=== PATIENT | female | born 1995 | race Caucasian/White ===

== ENCOUNTER 2017-10-01 13:57 | Inpatient (IN) | payer BC ==
[2017-10-01 16:28] LABS: Bilirubin Small (Negative); Blood, Urine Small (Negative); Clarity CLOUDY (Clear); Glucose, Urine (Dipstick) Negative (Negative); Leukocyte Trace (Negative); Nitrite Negative (Negative); Protein, Urine (Dipstick) Trace mg/dL (Neg-Trace); Specific Gravity, Urine 1.031 (1.002-1.036); Urobilinogen 0.2 mg/dL (0.2-1.0)
[2017-10-01 16:30] LABS: Squamous Epithelial 21-50 HPF (0-3)
[2017-10-01] MEDS ORDERED: Ondansetron HCl/PF 4 MG/2 ML Vial ONE (16:30)
[2017-10-01 16:33] LABS: Pathc Cast-AUWi Flag 5.82 (0-2.49); Pregnancy Test - Urine (BHCG) Negative (Negative); Pregu Control Background? CLEAR/WHITE (CLR/WHITE); Pregu Control Bar Appear? YES (CONTROL BAR); Specific Gravity 1.031 (1.002-1.036)
[2017-10-01 16:44] LABS: Bacteria/HPF 3+ HPF (None Seen); Hyaline Casts/LPF 0-3 HYALINE CAST LPF (0-3 Hyaline); Manual Microscopic Reviewed? No Path Casts Seen; RBC/HPF 0-3 HPF (0-3); Renal Epithelial None Seen HPF (0-3); Transitional Epithelial NONE SEEN HPF (0-3)
[2017-10-01] MEDS ORDERED: cefTRIAXone\\ROCEPHIN 2 GM in Sodium Chloride 0.9% 100 ML IVPB SCH (17:30)
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
[2017-10-01] MEDS ORDERED: Ketorolac Tromethamine 30 MG/ML VIAL ONE (18:52)
[2017-10-01] MEDS ORDERED: Fentanyl 100 MCG/2 ML VIAL ONE (18:52)
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
[2017-10-01] MEDS ORDERED: Ondansetron HCl/PF 4 MG/2 ML Vial IVP PRN (20:29)
[2017-10-01] MEDS ORDERED: Ondansetron ODT 4 MG TAB PO PRN (20:29)
[2017-10-01] MEDS ORDERED: Dextrose 50% Abboject 50 ML SYRINGE SLOW IVP PRN (20:29)
[2017-10-01] MEDS ORDERED: Dextrose 5% in Water 1,000 ML IV PRN (20:29)
[2017-10-01] MEDS ORDERED: traMADol HCl 50 MG TAB PO PRN (20:29)
[2017-10-01] MEDS ORDERED: hydrALAZINE 20 MG/ML VIAL SLOW IVP PRN (20:29)
[2017-10-01] MEDS ORDERED: Lorazepam 1 MG TAB PO PRN (20:59)
[2017-10-01] MEDS ORDERED: Gabapentin 100 MG CAP PO SCH (21:00)
[2017-10-01 21:50] LABS: Anion Gap 12 mmol/L (10-20); BUN (Urea Nitrogen) 13 mg/dL (7.0-18.7); Calc. Creatinine Clearance 0 mL/min (70-130); Calcium 9.1 mg/dL (7.8-10.44); Carbon Dioxide 26 mmol/L (22-29); Chloride 106 mmol/L (98-107); Estimated GFR-MDRD Greater than 90; Glucose 84 mg/dL (70-105); Potassium 3.4 mmol/L (3.5-5.1); Sodium 141 mmol/L (136-145)
[2017-10-01] MEDS: Famotidine 20 MG TAB PO SCH (21:58)
[2017-10-01] MEDS: Gabapentin 300 MG CAP PO SCH (21:58)
[2017-10-01] MEDS: Sulfameth/Trimethoprim DS 800-160mg TAB PO SCH (21:58)
[2017-10-01] MEDS: Sodium Chloride 0.9% 1,000 ML IV SCH (21:58)
[2017-10-01] MEDS: Cyclobenzaprine 10 MG TAB PO PRN (21:58)
[2017-10-02] MEDS: traMADol HCl 50 MG TAB PO SCH ×4 (00:58→23:54)
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
[2017-10-02 05:28] LABS: #Lymphocytes 2.1 thou/uL (1.20-3.40); #Monocytes 0.6 thou/uL (0.11-0.59); #Neutrophils 5.2 thou/uL (1.40-6.50); %Basophils 0.2 % (0.0-1.0); %Eosinophils 0.2 % (0.0-10.0); %Lymphocytes 26.4 % (21.0-51.0); %Monocytes 7.7 % (0.0-10.0); %Neutrophils 65.5 % (42.0-75.0); Hemoglobin 12.1 g/dL (12.0-16.0); Mean Corpuscular HGB CONC 33.5 g/dL (32.0-36.0); Mean Corpuscular Hemoglobin 29.9 pg (27.0-31.0); Mean Corpuscular Volume 89.2 fl (81.0-99.0); Mean Platelet Volume 7.1 fL (7.4-10.4); Platelet Count 238 thou/uL (130-400); Red Blood Cell (RBC) Count 4.06 mill/uL (4.20-5.40)
[2017-10-02 05:38] LABS: Anion Gap 12 mmol/L (10-20); BUN (Urea Nitrogen) 12 mg/dL (7.0-18.7); Calc. Creatinine Clearance 0 mL/min (70-130); Calcium 8.9 mg/dL (7.8-10.44); Carbon Dioxide 22 mmol/L (22-29); Chloride 108 mmol/L (98-107); Estimated GFR-MDRD Greater than 90; Glucose 83 mg/dL (70-105); Potassium 3.2 mmol/L (3.5-5.1); Sodium 139 mmol/L (136-145)
[2017-10-02] MEDS: Sodium Chloride 0.9% 1,000 ML IV SCH ×2 (06:50→18:10)
[2017-10-02 07:57] VITALS: BMI 40.3
[2017-10-02] MEDS ORDERED: FLU VACC QS2017-18 36 mo. & older 0.5 ML SYRINGE IM ONE (08:15)
[2017-10-02] MEDS: Famotidine 20 MG TAB PO SCH ×2 (08:41→21:23)
[2017-10-02] MEDS: Sulfameth/Trimethoprim DS 800-160mg TAB PO SCH ×2 (08:41→21:23)
[2017-10-02] MEDS: Gabapentin 300 MG CAP PO SCH ×2 (08:41→21:23)
[2017-10-02] MEDS: Folic Acid 1 MG TAB PO SCH (08:41)
[2017-10-02] MEDS ORDERED: Bacitracin Zinc 1 Packet TOP SCH (09:15)
[2017-10-02] MEDS ORDERED: Dexamethasone 4 mg/ml Vial SLOW IVP SCH (09:30)
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
[2017-10-02] MEDS ORDERED: Fentanyl 100 MCG/2 ML VIAL ONE ×4 (11:12→15:53)
[2017-10-02] MEDS ORDERED: Sodium Chloride 0.9% 10 ML ONE (11:22)
[2017-10-02] MEDS ORDERED: Dexamethasone 4 mg/ml Vial ONE (11:25)
[2017-10-02] MEDS ORDERED: Midazolam HCl 2 mg/2 ml Vial ONE (11:38)
[2017-10-02] MEDS ORDERED: Morphine 10 MG/ML VIAL ONE (11:38)
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
--- NOTE | 2017-10-02 14:20 | OP ---
DATE OF PROCEDURE: 10/02/2017 SURGEON: Rich Morales M.D. HOUSE MOVING SUPERVISOR: Angel Núñez PROCEDURE: L1 laminectomy, T12-L2 posterolateral arthrodesis, pedicle screw instrumentation, deminer alized bone matrix, and local morselized autograft T12-L2. DESCRIPTION OF PROCEDURE: The patient was brought into the operating room, intubated. She was jeffrey d in the prone position on gel-filled chest rolls. Incision made exposing T12 through L2 and our lev el was confirmed by x-ray. We identified a fracture through the posterior elements of L1 as anticipa chan. We performed a complete L1 laminectomy, completely decompressing the neural elements here. Nex t, pedicle screws were placed at T12 and L2 bilaterally using lateral fluoroscopic guidance and the p ositioned was confirmed with rotational x-ray. A demario was secured between the screws, connected by nu ts which were final tightened. The wound was then extensively irrigated, immaculate hemostasis was s ecured. A combination of demineralized bone matrix and local morselized autograft was laid over the laminar and posterolateral surfaces for the purpose of arthrodesis. Vancomycin powder was applied an d the wound was closed in anatomic layers.
[2017-10-02] MEDS ORDERED: Promethazine HCl 25 MG/ML VIAL IM PRN ×2 (14:40→15:09)
[2017-10-02] MEDS ORDERED: diphenhydrAMINE 50 MG/ML VIAL IM PRN (14:40)
[2017-10-02] MEDS ORDERED: Naloxone HCl 0.4 mg/ml Vial IV PRN (14:40)
[2017-10-02] MEDS ORDERED: HYDROmorphone 10 mg/100 ml CADD IVPB PRN (14:40)
[2017-10-02] MEDS ORDERED: diphenhydrAMINE 50 MG/ML VIAL IVP PRN (14:40)
[2017-10-02] MEDS ORDERED: Acetaminophen 500 MG TAB PO PRN (14:41)
[2017-10-02] MEDS ORDERED: Acetaminophen 500 MG TAB PO SCH (14:45)
[2017-10-02] MEDS ORDERED: Communication Order-Pharmacy FS SCH (14:45)
[2017-10-02] MEDS ORDERED: Ondansetron HCl/PF 4 MG/2 ML Vial IVP PRN (15:09)
[2017-10-02] MEDS ORDERED: Promethazine HCl 25 MG/ML VIAL SLOW IVP PRN (15:09)
[2017-10-02] MEDS ORDERED: Glycopyrrolate 0.2 MG/ML 5 ML SYRINGE ONE (15:33)
[2017-10-02] MEDS ORDERED: Propofol 200 MG/20 ML VIAL ONE (15:33)
[2017-10-02] MEDS ORDERED: Ondansetron HCl/PF 4 MG/2 ML Vial ONE (15:33)
[2017-10-02] MEDS ORDERED: Metoclopramide HCl 10 MG/2 ML VIAL ONE (15:33)
[2017-10-02] MEDS ORDERED: Lidocaine 1% PF 5 ML VIAL ONE (15:33)
[2017-10-02] MEDS ORDERED: diphenhydrAMINE 50 MG/ML VIAL ONE (15:33)
[2017-10-02] MEDS ORDERED: Dexamethasone 20 MG/5 ML VIAL ONE (15:33)
[2017-10-02] MEDS: Ketorolac Tromethamine 30 MG/ML VIAL IVP SCH ×2 (18:07→23:56)
[2017-10-02] MEDS: Bacitracin Zinc 1 Packet TOP SCH (21:24)
[2017-10-02] MEDS: CEFAZOLIN/Water 2 GM/20 ML SYRINGE SLOW IVP SCH (21:24)
[2017-10-02] MEDS ORDERED: CEFAZOLIN 1 GM VIAL SLOW IVP SCH (22:00)
[2017-10-02] MEDS ORDERED: CEFAZOLIN 1 GM, Syringe 2.5 ML in Sterile Water 7.5 ML SLOW IVP SCH (22:00)
[2017-10-02] MEDS: Acetaminophen 500 MG TAB PO SCH (23:55)
[2017-10-03] MEDS: traMADol HCl 50 MG TAB PO SCH ×5 (00:28→23:56)
--- NOTE | 2017-10-03 06:01 | PRG ---
DATE OF SERVICE: 10/02/2017 This is a 22-year-old female status post L1 laminectomy, T12-L2 posterolateral arthrodesis. Patient has no personal complaints at this time, says her pain has been managed with current pain reg imen. OBJECTIVE: VITAL SIGNS: Has been overall stable and reviewed. ASSESSMENT AND PLAN: Continue care as noted in daily progress note. PT, OT. Continue to monitor.
[2017-10-03] MEDS: Acetaminophen 500 MG TAB PO SCH ×3 (06:08→18:23)
[2017-10-03] MEDS: Ketorolac Tromethamine 30 MG/ML VIAL IVP SCH ×2 (06:08→11:34)
[2017-10-03] MEDS: CEFAZOLIN/Water 2 GM/20 ML SYRINGE SLOW IVP SCH (06:10)
[2017-10-03] MEDS: Gabapentin 300 MG CAP PO SCH ×3 (09:18→19:59)
[2017-10-03] MEDS: Famotidine 20 MG TAB PO SCH (09:18)
[2017-10-03] MEDS: Bacitracin Zinc 1 Packet TOP SCH ×2 (09:18→19:59)
[2017-10-03] MEDS: Folic Acid 1 MG TAB PO SCH (09:19)
[2017-10-03] MEDS: Sulfameth/Trimethoprim DS 800-160mg TAB PO SCH ×2 (09:19→19:59)
[2017-10-03] MEDS: Venlafaxine HCl 25 MG TAB PO SCH (09:21)
[2017-10-03] MEDS: Cyclobenzaprine 10 MG TAB PO PRN ×3 (09:24→17:32)
[2017-10-03] MEDS ORDERED: HYDROcodone/Acetaminophen 10/325 mg Tablet PO SCH (09:45)
--- NOTE | 2017-10-03 12:05 | PRG ---
DATE OF SERVICE: 10/03/2017 SUBJECTIVE: Ms. Pandya is awake and alert today. She is postoperative day #1 today status post L1 l aminectomy. She reports 7/10 back pain. She moves all extremities. She tolerates diet. Denied any nausea or vomiting. OBJECTIVE: VITAL SIGNS: This morning includes blood pressure 116/75, pulse 70, respiratory rate is 14, temperat ure 98.4 degrees Fahrenheit, oxygen saturation is 95% on room air. HEENT: Reveals normocephalic and atraumatic. HEART: Reveals regular rate and rhythm, no murmurs or gallops auscultated. CHEST: Clear to auscultation bilaterally. Breathing is regular and unlabored. She is achieving 150 0 mL using incentive spirometer. ABDOMEN: Soft, nontender, nondistended. EXTREMITIES: Reveals 2+ radial and pedal pulses bilaterally. No ankle edema is present. MUSCULOSKELETAL: Reveals 4/5 muscle strength in bilateral lower extremities, this is improved from p reoperatively. Upper extremity is 5/5. NEUROLOGIC: She has no sensory deficits identified at this time. IMPRESSION: Postoperative day #1, status post L1 laminectomy. PLAN: Continue with physical and occupational therapy. Initiate a chemical VTE prophylaxis as it ad juncts to the nonpharmacological VTE prophylaxis. We will ask PMR to evaluate the patient in consideration for inpatient rehabilitation. We will optim ize pain management. Above findings and plan discussed with the patient who indicates understanding of the information spike rucker. I answered her questions.
[2017-10-03] MEDS ORDERED: traMADol HCl 50 MG TAB PO SCH ×2 (14:00→19:30)
[2017-10-03] MEDS: Ibuprofen 800 MG TAB PO SCH ×2 (14:08→23:56)
[2017-10-03] MEDS: HYDROcodone/Acetaminophen 10/325 mg Tablet PO PRN (17:32)
[2017-10-03] MEDS: Cephalexin 250 MG CAP PO SCH ×2 (18:23→23:56)
--- NOTE | 2017-10-03 21:52 | PRG ---
DATE OF SERVICE: 10/03/2017 SUBJECTIVE: This is a 22-year-old female status post L1 laminectomy and T12-L2 posterolateral arthro desis fusion. The patient has no new complaints at this time. Pain is controlled. She is postopera tive day #1. OBJECTIVE: VITAL SIGNS: Have been overall stable and reviewed. Physical exam is unremarkable than stated in th e daily progress note. ASSESSMENT AND PLAN: Continue care as noted in daily progress note. PT, OT. Continue to monitor. Discharge disposition is pending.
[2017-10-04] MEDS: Acetaminophen 500 MG TAB PO SCH ×5 (00:01→23:05)
[2017-10-04] MEDS: HYDROcodone/Acetaminophen 10/325 mg Tablet PO PRN ×4 (01:03→20:22)
[2017-10-04] MEDS: traMADol HCl 50 MG TAB PO SCH ×5 (06:15→23:00)
[2017-10-04] MEDS: Cephalexin 250 MG CAP PO SCH ×4 (06:15→23:00)
[2017-10-04] MEDS: Ibuprofen 800 MG TAB PO SCH ×3 (06:15→22:58)
[2017-10-04] MEDS: Gabapentin 300 MG CAP PO SCH ×3 (08:55→20:23)
[2017-10-04] MEDS: Venlafaxine HCl 25 MG TAB PO SCH (08:55)
[2017-10-04] MEDS: Bacitracin Zinc 1 Packet TOP SCH ×2 (08:56→20:23)
[2017-10-04] MEDS: Sulfameth/Trimethoprim DS 800-160mg TAB PO SCH ×2 (08:56→20:23)
[2017-10-04] MEDS: Folic Acid 1 MG TAB PO SCH (08:56)
[2017-10-04] MEDS: diphenhydrAMINE 25 MG CAP PO PRN ×2 (10:08→20:22)
--- NOTE | 2017-10-04 18:03 | PRG ---
DATE OF SERVICE: 10/04/2017 ATTENDING PHYSICIAN: Kvng Villagomez DO SUBJECTIVE: The patient is postoperative day number 2 status post L1 laminectomy. She reports pain is much improved. She is moving all extremities and ambulating around the room. She is tolerating a regular diet. She is seen this morning up and dressed with clothes on, ready to work with physical therapy. OBJECTIVE: VITAL SIGNS: Temperature 97.6, pulse 70, respirations 12, O2 sat 96% on room air, blood pressure 137 /92. HEENT: Normocephalic, atraumatic. CARDIOVASCULAR: Regular rate and rhythm. Heart sounds normal. PULMONARY: Bilateral breath sounds clear. Respirations even and unlabored. 1500 mL on incentive sp irometer. ABDOMEN: Soft, nontender, nondistended. EXTREMITIES: Neurovascularly intact. Moves all extremities. Cap refill brisk. NEUROLOGIC: GCS 15. A and O x3. ASSESSMENT: 1. Status post L1 laminectomy. 2. Pain improving with change in pain regimen yesterday. PLAN: 1. Continue mobilizing with physical and occupational therapy. 2. Case management consult and rehab screening. 3. Continue antibiotics per Neurosurgery service. 4. Continue pain medication as currently ordered. 5. SCDs for DVT prophylaxis with ambulation. Neurosurgery not recommending chemical DVT prophylaxis . The patient was seen and examined with Dr. Villagomez who agrees with the assessment and plan. This is Honey Alexander, nurse practitioner, dictating a daily progress note for Dr. Kvng Villagomez.
[2017-10-04] MEDS: Cyclobenzaprine 10 MG TAB PO PRN (20:22)
[2017-10-04] MEDS: Senokot S 8.6-50 MG TAB PO SCH (20:23)
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
[2017-10-05] MEDS: HYDROcodone/Acetaminophen 10/325 mg Tablet PO PRN ×2 (03:14→08:57)
[2017-10-05] MEDS: Cephalexin 250 MG CAP PO SCH ×2 (05:43→12:02)
[2017-10-05] MEDS: traMADol HCl 50 MG TAB PO SCH ×2 (05:43→12:02)
[2017-10-05] MEDS: Acetaminophen 500 MG TAB PO SCH ×2 (05:44→11:26)
[2017-10-05] MEDS: Ibuprofen 800 MG TAB PO SCH (05:44)
[2017-10-05] MEDS: Bacitracin Zinc 1 Packet TOP SCH (08:56)
[2017-10-05] MEDS: diphenhydrAMINE 25 MG CAP PO PRN (08:56)
[2017-10-05] MEDS: Gabapentin 300 MG CAP PO SCH (08:56)
[2017-10-05] MEDS: Sulfameth/Trimethoprim DS 800-160mg TAB PO SCH (08:57)
[2017-10-05] MEDS: Senokot S 8.6-50 MG TAB PO SCH (08:57)
[2017-10-05] MEDS: Folic Acid 1 MG TAB PO SCH (08:57)
[2017-10-05] MEDS ORDERED: Polyethylene Glycol 3350 17 GM Packet PO SCH (09:00)
[2017-10-05] MEDS: Venlafaxine HCl 25 MG TAB PO SCH (09:01)
--- NOTE | 2017-10-05 10:51 | PRG ---
DATE OF SERVICE: 10/05/2017 Ms. Pandya is hospital day #4 following a thoracolumbar stabilization for an L1 burst fracture. She states she is improving daily. She has some paresthesias into her anterior thighs and I let her know this is typical, as the neural elements recover from a traumatic injury such as her burst fracture. Her strength is good throughout her multiple bilateral lower extremity myotomes and she is ambulatin g and mobilizing. Disposition will be determined by how she continues to do over the course of the n ext day or two.
[2017-10-05 11:38] VITALS: BP 121/79; TEMP 97.8
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
== END 2017-10-05 14:07 | disposition home or self-care (01) | DRG 460 ==
LOC: ERS 13:57 → SURG B 18:18
PROVIDERS: ADMIT Specialist; ATTEND Specialist
PROC: 0RGA071 Fusion of Thoracolumbar Vertebral Joint with Autologous Tissue Substitute, Posterior Approach, Posterior Column, Open Approach (ICD-10-PCS; principal; 2017-10-02)
PROC: 2W35X3Z Immobilization of Back using Brace (ICD-10-PCS; 2017-10-04)
DX: S32.011A Stable burst fracture of first lumbar vertebra, initial encounter for closed fracture (principal); S22.080A Wedge compression fracture of T11-T12 vertebra, initial encounter for closed fracture; Z68.41 Body mass index [BMI] 40.0-44.9, adult; V49.9XXA Car occupant (driver) (passenger) injured in unspecified traffic accident, initial encounter; F41.9 Anxiety disorder, unspecified; F32.9 Major depressive disorder, single episode, unspecified; E66.9 Obesity, unspecified
CPT/HCPCS: 36415; 72125; 72128; 72131; 76001; 80048; 81003; 81015; 81025; 85025; 87086; 96365; 96375; A4216; C1713; C1768; G8978-GP-CL; G8979-GP-CJ; G8987-GO-CL; G8988-GO-CJ; J0131; J0690; J0696; J1100; J1200; J1885; J2001; J2250; J2270; J2405; J2704; J2765; J3010; J3370; J3490; J7050

== ENCOUNTER 2017-10-16 09:29 | Outpatient (CLI) | payer BC ==
--- NOTE | 2017-10-16 11:13 | RAD ---
LUMBAR SPINE TWO VIEWS: History: Status post lumbar surgery. Comparison: None. FINDINGS: There are midline skin nick. There are bilateral transpedicular screws at what appears to be T12 a nd L2. Moderate compression deformity at L1 with retropulsion. IMPRESSION: Fusion changes at the distal thoracic and upper lumbar spine. POS: [facility]
== END 2017-10-16 09:30 | disposition home or self-care (01) ==
LOC: TBSIIMAG 09:29
PROVIDERS: ATTEND Physician Assistant
DX: M54.5 Low back pain (principal); Z98.1 Arthrodesis status
CPT/HCPCS: 72100

== ENCOUNTER 2017-11-28 15:00 | Outpatient (CLI) | payer BC ==
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
== END 2017-11-28 15:01 | disposition home or self-care (01) ==
LOC: TBSIIMAG 15:00
PROVIDERS: ATTEND Neurological Surgery
DX: M48.56XA Collapsed vertebra, not elsewhere classified, lumbar region, initial encounter for fracture (principal); Z98.890 Other specified postprocedural states
CPT/HCPCS: 72100

== ENCOUNTER 2018-01-01 15:09 | Outpatient (CLI) | payer BC ==
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
== END 2018-01-01 15:10 | disposition home or self-care (01) ==
LOC: TBSIIMAG 15:09
PROVIDERS: ATTEND Neurological Surgery
DX: M54.9 Dorsalgia, unspecified (principal); Z96.89 Presence of other specified functional implants
CPT/HCPCS: 72100

== ENCOUNTER 2018-04-03 13:30 | Outpatient (CLI) | payer BC ==
--- NOTE | 2018-04-03 13:54 | RAD ---
LUMBAR SPINE SERIES 2 VIEWS: Date: 04/03/18 HISTORY: Postop. COMPARISON: 01/01/18 study. FINDINGS: Postoperative changes are again noted of the spine. This includes bilateral pedicle screws at T12 and L1 with stable compression changes of the T12 vertebral body. Pedicle screws appear unchanged in pos ition. The right T12 pedicle screw appears to extend into the disc space. IMPRESSION: Stable exam. POS: [facility]
== END 2018-04-03 13:31 | disposition home or self-care (01) ==
LOC: TBSIIMAG 13:30
PROVIDERS: ATTEND Neurological Surgery
DX: M54.9 Dorsalgia, unspecified (principal)
CPT/HCPCS: 72100

== ENCOUNTER 2018-06-04 19:54 | Emergency (ER) | payer BC ==
[2018-06-04] MEDS ORDERED: HYDROcodone/Acetaminophen 5/325 mg Tablet ONE (21:04)
[2018-06-04 21:08] LABS: #Eosinphils 0.1 thou/uL (0.0-0.7); #Lymphocytes 3.6 thou/uL (1.20-3.40); #Monocytes 0.6 thou/uL (0.11-0.59); #Neutrophils 8.1 thou/uL (1.40-6.50); %Basophils 0.1 % (0.0-1.0); %Lymphocytes 29.3 % (21.0-51.0); %Monocytes 5.1 % (0.0-10.0); %Neutrophils 64.6 % (42.0-75.0); Hemoglobin 13.9 g/dL (12.0-16.0); Mean Corpuscular HGB CONC 33.1 g/dL (32.0-36.0); Mean Corpuscular Hemoglobin 28.9 pg (27.0-31.0); Mean Corpuscular Volume 87.3 fL (78.0-98.0); Mean Platelet Volume 6.7 fL (7.4-10.4); Platelet Count 369 thou/uL (130-400); RBC Distribution Width 11.6 % (11.5-14.5); White Blood Cell (WBC) Count 12.5 thou/uL (4.8-10.8)
[2018-06-04 21:15] LABS: BHCG - Serum Negative (NEGATIVE); Pregs Control Background? CLEAR/WHITE (CLR/WHITE); Pregs Control Bar Appear? YES (CONTROL BAR)
[2018-06-04] MEDS ORDERED: Methocarbamol 500 MG TAB PO SCH (21:15)
[2018-06-04 21:32] LABS: ALT (SGPT) 19 U/L (8-55); AST (SGOT) 15 U/L (5-34); Albumin 4.6 g/dL (3.5-5.0); Alkaline Phosphatase 53 U/L (40-150); Anion Gap 15 mmol/L (10-20); BUN (Urea Nitrogen) 9 mg/dL (7.0-18.7); Bilirubin, Total 0.2 mg/dL (0.2-1.2); Calc. Creatinine Clearance 0 mL/min (70-130); Calcium 9.9 mg/dL (7.8-10.44); Carbon Dioxide 21 mmol/L (22-29); Chloride 106 mmol/L (98-107); Estimated GFR-MDRD Greater than 90; Globulin 3.3 g/dL (2.4-3.5); Glucose 93 mg/dL (70-105); Potassium 3.7 mmol/L (3.5-5.1); Protein, Total 7.9 g/dL (6.0-8.3); Sodium 138 mmol/L (136-145)
[2018-06-04] MEDS ORDERED: Lorazepam 2 MG/ML VIAL ONE (21:34)
[2018-06-04] MEDS ORDERED: Lorazepam 1 MG TAB ONE (21:49)
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
--- NOTE | 2018-06-04 22:25 | CT ---
CT PELVIS WITH CORONAL AND SAGITTAL REFORMATIONS: 06/04/18 HISTORY: Fall. Right sided leg pain. FINDINGS/IMPRESSION: The bony pelvis is intact. The proximal femurs are also intact. No fracture or dislocation is identif ied. POS: [facility]
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
[2018-06-04] MEDS ORDERED: Ketorolac Tromethamine 60 MG/2 ML VIAL ONE (23:26)
== END 2018-06-05 00:36 | disposition home or self-care (01) ==
LOC: ERS 19:54
DX: M54.5 Low back pain (principal); F32.9 Major depressive disorder, single episode, unspecified; F41.9 Anxiety disorder, unspecified; Z79.899 Other long term (current) drug therapy; W18.2XXA Fall in (into) shower or empty bathtub, initial encounter
CPT/HCPCS: 36415; 70450; 72125; 72158; 72192; 80053; 84703; 85025; 96372; J1885; J2060

== ENCOUNTER 2018-09-23 12:05 | Emergency (ER) | payer OTHER ==
[2018-09-23] MEDS ORDERED: Ketorolac Tromethamine 30 MG/ML VIAL ONE (12:26)
[2018-09-23] MEDS ORDERED: Cyclobenzaprine 10 MG TAB ONE (12:26)
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
== END 2018-09-23 13:35 | disposition home or self-care (01) ==
LOC: ERS 12:05
DX: S16.1XXA Strain of muscle, fascia and tendon at neck level, initial encounter (principal); V43.62XA Car passenger injured in collision with other type car in traffic accident, initial encounter
CPT/HCPCS: 72125; 96372; J1885

== ENCOUNTER 2018-10-13 11:41 | Emergency (ER) | payer OTHER ==
[~2018-10-13 11:41] MED LIST: ISOVUE-370 76%-LOCM 1 ML ONE
[2018-10-13 12:36] LABS: #Eosinphils 0.1 thou/uL (0.0-0.7); #Lymphocytes 2.4 thou/uL (1.20-3.40); #Monocytes 0.5 thou/uL (0.11-0.59); %Basophils 0.2 % (0.0-1.0); %Eosinophils 0.9 % (0.0-10.0); %Lymphocytes 21.4 % (21.0-51.0); %Monocytes 4.6 % (0.0-10.0); %Neutrophils 72.9 % (42.0-75.0); Hemoglobin 15.1 g/dL (12.0-16.0); Mean Corpuscular HGB CONC 33.6 g/dL (32.0-36.0); Mean Corpuscular Hemoglobin 29.2 pg (27.0-31.0); Mean Corpuscular Volume 86.8 fL (78.0-98.0); Mean Platelet Volume 6.9 fL (7.4-10.4); Platelet Count 386 thou/uL (130-400); RBC Distribution Width 11.4 % (11.5-14.5); Red Blood Cell (RBC) Count 5.18 mill/uL (4.20-5.40)
[2018-10-13 12:56] LABS: ALT (SGPT) 44 U/L (8-55); AST (SGOT) 32 U/L (5-34); Albumin 4.7 g/dL (3.5-5.0); Alkaline Phosphatase 57 U/L (40-150); Anion Gap 19 mmol/L (10-20); BUN (Urea Nitrogen) 9 mg/dL (7.0-18.7); Bilirubin, Total 0.4 mg/dL (0.2-1.2); Calc. Creatinine Clearance 0 mL/min (70-130); Calcium 10.3 mg/dL (7.8-10.44); Carbon Dioxide 18 mmol/L (22-29); Chloride 106 mmol/L (98-107); Estimated GFR-MDRD 90; Globulin 3.4 g/dL (2.4-3.5); Glucose 112 mg/dL (70-105); Magnesium 1.8 mg/dL (1.6-2.6); Potassium 3.8 mmol/L (3.5-5.1); Protein, Total 8.1 g/dL (6.0-8.3); Sodium 139 mmol/L (136-145)
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
[2018-10-13] MEDS ORDERED: Acetaminophen 500 MG TAB ONE (13:23)
[2018-10-13] MEDS ORDERED: Ketorolac Tromethamine 30 MG/ML VIAL ONE (13:23)
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
[2018-10-13 14:09] LABS: Bilirubin Moderate (Negative); Blood, Urine Negative (Negative); Glucose, Urine (Dipstick) Negative (Negative); Leukocyte Trace (Negative); Nitrite Negative (Negative); Protein, Urine (Dipstick) Negative (Neg-Trace); Urobilinogen 0.2 mg/dL (0.2-1.0)
[2018-10-13 14:17] LABS: Specific Gravity, Urine 1.023 (1.002-1.036)
[2018-10-13 14:18] LABS: Clarity Hazy (Clear)
[2018-10-13 14:20] LABS: Pregnancy Test - Urine (BHCG) Negative (Negative); Pregu Control Background? CLEAR/WHITE (CLR/WHITE); Pregu Control Bar Appear? YES (CONTROL BAR); Specific Gravity 1.025 (1.002-1.036)
[2018-10-13 14:21] LABS: Amphetamine Not Detected (NotDetected); Barbiturates Screen Not Detected (NotDetected); Benzodiazepine Screen Not Detected (NotDetected); Cocaine Metabolite Screen Not Detected (NotDetected); Medtox Control Line Valid? VALID (VALID); Medtox Reader # READER 1; Methadone Not Detected (NotDetected); Methamphetamine Not Detected (NotDetected); Opiate Screen Detected (NotDetected); Oxycodone Screen Not Detected (NotDetected); Phencyclidine (PCP) Not Detected (NotDetected); THC/Cannabinoid Screen Not Detected (NotDetected); Tricyclic Screen Not Detected (NotDetected)
[2018-10-13 14:27] LABS: Bacteria/HPF 2+ HPF (None Seen); RBC/HPF 0-3 HPF (0-3); Renal Epithelial None Seen HPF (0-3); Transitional Epithelial 0-3 HPF (0-3)
[2018-10-13 14:28] LABS: Hyaline Casts/LPF 0-3 HYALINE CAST LPF (0-3 Hyaline)
[2018-10-13] MEDS ORDERED: Lorazepam 2 MG/ML VIAL ONE (14:45)
[2018-10-13] MEDS ORDERED: Dexamethasone 4 mg/ml Vial ONE (15:07)
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
--- NOTE | 2018-10-18 14:06 | EKG ---
Test Reason : Blood Pressure : / mmHG Vent. Rate : 114 BPM Atrial Rate : 114 BPM P-R Int : 164 ms QRS Dur : 072 ms QT Int : 290 ms P-R-T Axes : 031 074 012 degrees QTc Int : 399 ms Sinus tachycardia Right atrial enlargement Nonspecific T wave abnormality Abnormal ECG Confirmed by MAHAMED Ferris, DOLLY ([id number]), image editor WARD HIGGINS ([id number]) on 10/18/2018 2:04:53 PM Referred By: Confirmed By:DOLLY IRBY M.D.
== END 2018-10-13 16:58 | disposition home or self-care (01) ==
LOC: ERS 11:41
DX: M54.5 Low back pain (principal); F41.9 Anxiety disorder, unspecified; F32.9 Major depressive disorder, single episode, unspecified
CPT/HCPCS: 36415; 70450; 71045; 72125; 74177; 80053; 80306; 81003; 81015; 81025; 83735; 84443; 84702; 85025; 85652; 86140; 93005; 96361; 96374; 96375; J1100; J1885; J2060; Q9966